=== PATIENT | male | born 1975 | race Caucasian/White ===

== ENCOUNTER 2020-03-17 10:04 | Outpatient (CLI) | payer BC, SELFPAY ==
--- NOTE | ~2020-03-17 | XR_ITS ---
XR lumbar spine 2-3V DATE: 03/17/2020 10:27 INDICATION: Left anterior thigh pain TECHNIQUE: AP, lateral, coned lateral lumbosacral views COMPARISON: None FINDINGS: The lumbar spine is normally aligned. No fracture or bone destruction or spondylolisthesis. The lumbar pedicles are intact. There is slight degenerative spurring of the lumbar spine. Lumbar an d lumbosacral interspaces are well preserved. The sacroiliac joints are normal. IMPRESSION: Slight degenerative spurring of the lumbar spine Reviewed, dictated and finalized at location B.
--- NOTE | ~2020-03-17 | XR_ITS ---
EXAMINATION: XR hip LT min 2V DATE: 03/17/2020 10:27 INDICATION: Left anterior thigh pain. TECHNIQUE: 3 views of left hip were obtained. COMPARISON: None. FINDINGS: Bone alignment is normal. No fracture. There is serpiginous sclerosis in left femoral head. There is mild left hip osteoarthritis. IMPRESSION: 1. Serpiginous sclerosis in left femoral head, likely osteonecrosis. 2. Mild left hip osteoarthritis. Reviewed, dictated and finalized at location A.
== END 2020-03-17 10:05 | disposition home or self-care (01) ==
LOC: ANHIMG 10:07
PROVIDERS: PCP Internal Medicine; Visit Provider Internal Medicine
DX: M79.605 Pain in left leg (principal); M16.12 Unilateral primary osteoarthritis, left hip
CPT/HCPCS: 72100; 73502

== ENCOUNTER → 2020-05-03 09:56 | Outpatient (CLI) | payer BC, SELFPAY ==
--- NOTE | ~2020-05-03 | XR_ITS ---
XR chest 2V DATE: 05/03/2020 10:16 INDICATION: Asthma. Preoperative evaluation. TECHNIQUE: PA and lateral views COMPARISON: 09/03/2019 PA chest FINDINGS: Normal heart size. No hilar or mediastinal enlargement. No pulmonary infiltrate or consolid ation, pleural effusion or pulmonary vascular congestion or pneumothorax. Included skeletal structure s are unremarkable. IMPRESSION: No active cardiopulmonary disease Reviewed, dictated and finalized at location A.
== END ==
PROVIDERS: PCP Internal Medicine; Visit Provider Internal Medicine
DX: J45.909 Unspecified asthma, uncomplicated (principal); Z01.818 Encounter for other preprocedural examination
CPT/HCPCS: 71046

== ENCOUNTER 2020-07-28 08:21 | Outpatient (CLI) | payer BC, SELFPAY ==
--- NOTE | 2020-08-09 21:50 | WPDHOMESLEEP ---
Sleep Study - Home Unattended Date of Study: 07/28/20 Ordering Provider: Kari Crowder MD Interpreting Physician: Virgie Badillo MD Home Sleep Study Type: Watch PAT Height: 1.88 m Weight: 102.058 kg Body Mass Index: 28.8 Neck Circumference (inches): 16 [place]: 2 Reason for Sleep Study Waking throughout the night and waking up feeling tired in the morning Sleep History Lasha Rivera is a 45-year-old male who has struggled for the last 10 years waking up frequently during the night and feeling tired in the morning. There is a family history of sleep issues with his sister having insomnia and his father having sleep apnea. He is on blood pressure medicines due to palpitations while trying to sleep. He frequently snores and is frequently loud enough that others complain about it. He occasionally awakens at night with heartburn, belching or coughing. He rarely awakens from sleep feeling short of breath. He rarely has trouble sleep with a cold. He rarely wakes up gasping for breath at night. He rarely has breathing problems at night observed by others. he does not sweat excessively at night. He frequently notices his heart pounding or beating irregularly at night. He rarely falls asleep during the day, never involuntarily, never while driving. He does not fall asleep during physical effort. He does not have loss of muscle tone with strong emotion. He rarely has daytime difficulties due to excessive sleepiness. He never feels paralyzed on waking or falling asleep. He occasionally has vivid dreamlike scenes upon awakening or falling asleep. He is not afraid to go to sleep. He occasionally has nightmares. He rarely remembers his dreams. He frequently has racing thoughts. He rarely feels sad or depressed. He occasionally has anxiety. He rarely has muscular tension. He does not notice parts of his body jerking at night. He does not kick at night. He rarely has crawling and aching feelings in his legs at night. He rarely has leg pain at night. He frequently has morning jaw pain and he frequently grinds his teeth during sleep. He rarely is bothered by pain during the day. He never is awakened by pain at night. He frequently wakes up feeling stiff in the morning with sore achy muscles. He occasionally wakes up with pain in the neck and spine. Normal bedtime is 11:00 p.m. falling asleep within 45 minutes waking 5 times at night for 15 minutes each time. When he wakes at 90 looks at his telephone. He wakes in the morning at 7:00 a.m.. He stays in the bed 1-2 hours after waking. He works as a furniture sales consultant weekend schedule reveals he goes to bed an hour later midnight and wakes at 8 in the morning. He does not usually take naps. A short nap may be refreshing. He is usually drowsy in the morning for 3 hours or longer. Habits: He smoked tobacco, quit 5 years ago. He drinks caffeine 3 servings a day. He drinks alcohol 4-5 per day. No recreational drugs. [facility] Past Medical History Medical History (Updated 08/09/20 @ 22:18 by Virgie Badillo MD) Allergic rhinitis Anxiety Eczema GERD (gastroesophageal reflux disease) Hypertension Seasonal allergies Family History Family History Other Family history of malignant neoplasm Hypertension Social History Social History Smoking status: Never smoker Alcohol intake: current Medications Home Medications Medication Instructions Recorded Confirmed Type methylprednisolone [Medrol ([facility])] See Rx Instructions .ROUTE 09/03/19 Rx .COMPLEX #21 each nebivolol [Bystolic] 5 mg PO DAILY 09/03/19 09/03/19 History omeprazole 40 mg PO DAILY 09/03/19 09/03/19 History sertraline [Zoloft] 150 mg PO DAILY 09/03/19 09/03/19 History Sleep Procedure The sleep study was completed using [employer] a technically adequate device with seven channels: peripheral arterial tone,
[2020-08-09 22:09] VITALS: BMI 28.8
== END 2020-07-28 08:22 | disposition home or self-care (01) ==
LOC: ANHCSM 08:22
PROVIDERS: PCP Internal Medicine; Visit Provider Internal Medicine
DX: G47.9 Sleep disorder, unspecified (principal); G47.33 Obstructive sleep apnea (adult) (pediatric)
CPT/HCPCS: 95800

== ENCOUNTER → 2021-01-09 03:59 | Outpatient (CLI) | payer BC, SELFPAY ==
[2021-01-09 20:06] LABS: SARS-CoV-2 RNA PCR Negative
== END ==
PROVIDERS: PCP Internal Medicine; Visit Provider Internal Medicine Gastroenterology
DX: Z01.812 Encounter for preprocedural laboratory examination (principal); Z20.822 Contact with and (suspected) exposure to COVID-19
CPT/HCPCS: C9803; U0003; U0005

== ENCOUNTER 2021-01-12 01:57 | Day surgery (SDC) | payer BC, SELFPAY ==
[2021-01-03 12:14] VITALS: BMI 28.8
[2021-01-12 10:05] VITALS: BP 128/84; PULSE 85; RESP 16; TEMP 36.1; O2SAT 98; BMI 28.4
[2021-01-12] MEDS: LACTATED RINGERS 1,000 ML 150 ML IV CONT (10:15)
--- NOTE | 2021-01-12 10:47 | WPDANESEPPF ---
Anes - Initial Pre Proc Eval Procedure: Operation Date: 01/12/21 11:30 Proposed Procedures p Screening Colonoscopy - Leland Lancaster MD Date/Time: 01/12/21 10:47 Surgeon: Leland Lancaster MD Pre Op Diagnosis: hx of colon polyps, neoplasm screening Patient Data Age: 45 Gender: M Height: 6 ft 2 in Weight: 100.4 kg Last Vital Signs Temp 97 F L 01/12/21 10:05 Pulse 85 01/12/21 10:05 Resp 16 01/12/21 10:05 BP 128/84 01/12/21 10:05 Pulse Ox 98 01/12/21 10:05 Allergies Allergy/AdvReac Type Severity Reaction Status Date / Time iodine Allergy Unknown Anaphylactic Verified 01/12/21 10:04 Shock Home Medications Medication Instructions Recorded Confirmed Type nebivolol [Bystolic] 10 mg PO DAILY 09/03/19 01/12/21 History famotidine 20 mg PO DAILY 01/03/21 01/12/21 History Patient hx anesthesia problems: none Family hx anesthesia problems: none [facility] Past Medical History Medical History (Updated 08/09/20 @ 22:18 by Virgie Badillo MD) Allergic rhinitis Anxiety Eczema GERD (gastroesophageal reflux disease) Hypertension Seasonal allergies Family History Family History Other Family history of malignant neoplasm Hypertension Social History Social History Years smoked: 4 Smoking status: Former smoker Tobacco type: cigarettes Alcohol intake: current Drinks per week: 8 Substance use: never Substance use type: does not use Living arrangements: with family Gender identity (if verbalized by the patient): Male Spiritual care concerns: No Anes - Eval Final PreProcedure Day of Procedure 01/12/21 10:47 Patient weight: obese Heart: regular rate and rhythm Lungs: clear to auscultation Airway: Mallampati scale class II Neurological: alert and oriented Last oral intake: >/= 8 hours ASA classification: III Emergent: no Anesthetic plan: proceed Anesthesia type and monitoring: general GIVS and standard monitoring Informed Consent: The patient's anesthetic plan and its attendant risks and benefits were discussed with the patient/family/POA. Questions were solicited and answers provided to the satisfaction of the patient/family/POA.
--- NOTE | 2021-01-12 10:59 | PM.HPGS ---
History of Present Illness History of Present Illness Consent: Risks, benefits, and alternatives have been discussed and questions answered. Patient agrees to proceed with procedure. Chief complaint: hx of colon polyps, neoplasm screening Narrative: Lasha Rivera is a 45 year old male with colon polyp ~ 7 years ago Review of Systems Constitutional: Constitutional: Denies headache(s) and Denies weakness Eyes: Eyes: Denies blurry vision ENT: Reports Normal hearing present, Denies headache(s) and Denies neck pain Cardiovascular: Cardiovascular: Denies chest pain and Denies dyspnea Respiratory: Respiratory: Denies dyspnea Gastrointestinal: Gastrointestinal: Reports no additional gastrointestinal complaints Genitourinary: Genitourinary: Denies dysuria Musculoskeletal: Musculoskeletal: Denies neck pain Integumentary/Breasts: Skin/Breast: Denies dry skin Neurologic: Reports Normal hearing present, Denies headache(s) and Denies weakness Psychiatric: Psychiatric: Denies anxiety Endocrine: Endocrine: Denies change in body appearance Hematologic/Lymphatic: Hematologic/Lymphatic: Denies easy bleeding Allergic/Immunologic: Allergic/Immunologic: Denies urticaria PMFSH Past Medical History Medical History (Updated 01/12/21 @ 10:59 by Leland Lancaster MD) Allergic rhinitis Anxiety Colon polyp Eczema GERD (gastroesophageal reflux disease) Hypertension Seasonal allergies Family History Family History Other Family history of malignant neoplasm Hypertension Social History Social History Years smoked: 4 Smoking status: Former smoker Tobacco type: cigarettes Alcohol intake: current Drinks per week: 8 Substance use: never Substance use type: does not use Living arrangements: with family Gender identity (if verbalized by the patient): Male Spiritual care concerns: No Meds Home Medications and Allergies Home Medications Medication Instructions Recorded Confirmed Type nebivolol [Bystolic] 10 mg PO DAILY 09/03/19 01/12/21 History famotidine 20 mg PO DAILY 01/03/21 01/12/21 History Allergies Allergy/AdvReac Type Severity Reaction Status Date / Time iodine Allergy Unknown Anaphylactic Verified 01/12/21 10:04 Shock Vital Signs Vital Signs - 24 hr 01/12/21 10:05 Temperature 97 F L Pulse Rate 85 Respiratory Rate 16 Blood Pressure 128/84 Pulse Oximetry 98 Exam Const: General: comfortable and no acute distress HENMT: General nose exam: Normal nares present Eyes: General: appearance normal, both eyes and all related structures Neck: Neck: no JVD Resp: Auscultation: clear to auscultation bilaterally Cardio: Rate: regular rate Rhythm: regular rhythm GI: Inspection: non-distended GI Palp: Yes Soft to palpation Skin: General skin exam: normal color Neuro: General: gait normal Speech: normal speech Extrem: General: normal to inspection Psych: Mental Status: mental status grossly normal Assessment and Plan Assessment and plan (1) Colon polyp: Code(s): K63.5 - Polyp of colon Status: Acute Assessment and Plan: colonoscopy
[2021-01-12 11:15] VITALS: BP 120/77; PULSE 90; RESP 24; O2SAT 98
[2021-01-12 11:25] VITALS: BP 112/64; PULSE 84; RESP 22; O2SAT 98
[2021-01-12 11:35] VITALS: BP 108/69; PULSE 82; RESP 18; O2SAT 98
== END 2021-01-12 11:51 | disposition home or self-care (01) ==
PROVIDERS: PCP Internal Medicine; Visit Provider Internal Medicine Gastroenterology
PROC: 0DJD8ZZ Inspection of Lower Intestinal Tract, Via Natural or Artificial Opening Endoscopic (ICD-10-PCS; CPT 45378; principal; 2021-01-12 11:30)
DX: Z12.11 Encounter for screening for malignant neoplasm of colon (principal); K63.5 Polyp of colon; K57.30 Diverticulosis of large intestine without perforation or abscess without bleeding; K64.8 Other hemorrhoids; I10 Essential (primary) hypertension; K21.9 Gastro-esophageal reflux disease without esophagitis; F41.9 Anxiety disorder, unspecified; Z87.891 Personal history of nicotine dependence; E66.9 Obesity, unspecified; Z68.28 Body mass index [BMI] 28.0-28.9, adult
CPT/HCPCS: 45385; 88305; C9803; J2001; J2704; J7120; U0003; U0005

== ENCOUNTER 2021-12-30 21:10 | Emergency (ER) | payer BC, SELFPAY ==
[2021-12-30 21:16] VITALS: BP 163/94; PULSE 103; RESP 24; TEMP 36.8; O2SAT 100
--- NOTE | 2021-12-30 21:24 | ECG_ITS ---
Measurements Intervals [place] Rate: 82 P: -7 [place]: 168 QRS: -28 QRSD: 103 T: 31 QT: 394 QTc: 463 Interpretive Statements SINUS RHYTHM EARLY PRECORDIAL R/S TRANSITION BORDERLINE ECG Electronically Signed On 01-01-2022 9:49:02 CDT by Ortiz Sun D.O.
--- NOTE | 2021-12-30 21:46 | ED.DIZZY ---
HPI - Dizziness General Chief Complaint: Dizziness Stated Complaint: dizzy, puking Time Seen by Provider: 12/30/21 21:17 Source: patient and family Mode of arrival: ambulatory History of Present Illness HPI Narrative: 46-year-old male presented to the emergency department for evaluation of dizziness that started at approximately 3 AM. Patient states he woke up to use the restroom and felt mildly dizzy. Patient states he woke up at 6 AM and the dizziness had worsened. Patient describes a spinning sensation that is worsened when turning his head. Patient states symptoms are improved when laying flat and closing his eyes. Patient states over the course of the day he has had multiple episodes of emesis. Related Data Home Medications Medication Instructions Recorded Confirmed nebivolol [Bystolic] 10 mg PO DAILY 09/03/19 01/12/21 famotidine 20 mg PO DAILY 01/03/21 01/12/21 Allergies Allergy/AdvReac Type Severity Reaction Status Date / Time iodine Allergy Unknown Anaphylactic Verified 12/30/21 22:01 Shock Review of Systems Review of Systems: CONSTITUTIONAL: Denies fever, chills, or sweats. EYES: Denies visual changes, redness, or discharge. ENT: Denies rhinorrhea, congestion, sore throat, or otalgia. CARDIOVASCULAR: Denies chest pain, palpitations, or edema. RESPIRATORY: Denies cough or dyspnea. GASTROINTESTINAL: Denies abdominal pain but does have nausea and vomiting. GENITOURINARY: Denies dysuria or hematuria. SKIN: Denies rash or itching. MUSCULOSKELETAL: Denies back pain, joint pain, or myalgia. NEUROLOGIC: See HPI [facility] Past Medical History Medical History (Updated 12/30/21 @ 23:53 by Gold Thornton MD) Allergic rhinitis Anxiety Colon polyp Eczema GERD (gastroesophageal reflux disease) Hypertension Seasonal allergies Family History Family History Other Family history of malignant neoplasm Hypertension Social History Social History Years smoked: 4 Smoking status: Former smoker Tobacco type: cigarettes Alcohol intake: current Drinks per week: 8 Substance use: never Substance use type: does not use Gender identity (if verbalized by the patient): Male Spiritual care concerns: No Exam Narrative: APPEARANCE: Well appearing, no pain, no distress, well-nourished. HEAD: normocephalic, atraumatic. EYES: PERRLA/EOMI, conjunctivae clear. Sustained nystagmus to the left NOSE: Normal no drainage EARS:TMS clear with good light reflex. THROAT: Pharynx clear, no exudate. NECK: Supple. No adenopathy, no masses. RESPIRATORY: Airway patent, respirations nonlabored. Clear to auscultation bilaterally, no rales, rhonchi, wheezing. CARDIOVASCULAR: Regular rate and rhythm without murmurs rubs or gallops. ABDOMINAL: Soft, nontender, nondistended, normal bowel sounds MUSCULOSKELETAL: Moves all extremities. Strength/ROM intact, No edema, No calf tenderness. NEURO: Alert. Cranial nerves II through XII intact. Grossly intact SKIN: Warm, dry. Normal Color Course Course Emergency Course: Patient did feel improved with treatment. Nausea was controlled with Zofran. Patient was able to ambulate without issue after the meclizine. Patient and were updated on the results of the work-up, plan for treatment at home and importance of follow-up with the primary care physician. Vital Signs Vital signs: Vital Signs Temperature 98.2 F 12/30/21 21:16 Pulse Rate 103 H 12/30/21 21:16 Respiratory Rate 24 H 12/30/21 21:16 Blood Pressure 163/94 H 12/30/21 21:16 Pulse Oximetry 100 12/30/21 21:16 Temperature 98.2 F 12/30/21 21:16 Pulse Rate 74 12/30/21 22:55 Respiratory Rate 15 12/30/21 22:55 Blood Pressure 137/91 H 12/30/21 22:55 Pulse Oximetry 100 12/30/21 22:55 MDM - Dizziness Differential Diagnosis Differential diagnosis: Likely benign paroxysmal positi
[2021-12-30 21:53] VITALS: BP 126/87; PULSE 85; RESP 18; O2SAT 96
[2021-12-30] MEDS: ONDANSETRON INJ 4 MG/2 ML VIAL IV PUSH (22:02)
[2021-12-30] MEDS: SODIUM CHLORIDE 0.9% IV 1,000 ML 999 ML IV CONT (22:02)
[2021-12-30 22:09] LABS: Basophils Percent Auto 0.2 % (0.2-1.2); Eosinophils Percent Auto 0.1 % (0-4.4); Hematocrit 48.4 % (42.0-52.0); Immature Granulocyte Absolute 0.05 K/mm3 (0.00-0.031); Immature Granulocyte Percent A 0.3 % (0-0.5); Lymphocytes Absolute Auto 2.55 K/mm3 (0.9-3.2); Lymphocytes Percent Auto 17.5 % (18.3-44.2); Mean Corpuscular HGB Conc 33.1 g/dl (32-36); Mean Corpuscular Hemoglobin 30.2 pg (26-34); Mean Corpuscular Volume 91.3 fl (80-100); Mean Platelet Volume 11.5 fl (7.4-10.4); Monocytes Percent Auto 6.9 % (2.6-8.5); Neutrophils Absolute Auto 10.9 K/mm3 (1.3-6.7); Platelet Count Result 270 k/mm3 (150-375); Red Cell Distribution Width 13.3 % (11.5-14.5); White Blood Count 14.6 K/mm3 (4.5-10.0)
[2021-12-30] MEDS: MECLIZINE HCL 25 MG TABLET PO (22:54)
[2021-12-30 22:55] VITALS: BP 137/91; PULSE 74; RESP 15; O2SAT 100
[2021-12-30 23:04] LABS: Alanine Aminotransferase 35 U/L (6-50); Alkaline Phosphatase 65 U/L (38-126); Anion Gap 9 mmol/L (8-16); Aspartate Amino Transferase 29 U/L (17-59); Bilirubin,Total 0.3 mg/dL (0.2-1.3); Blood Urea Nitrogen 6 mg/dL (9-20); Calcium 8.5 mg/dL (8.4-10.2); Carbon Dioxide 24 mmol/L (22-30); Chloride 99 mmol/L (98-107); Estimated CRCL calculation 154 ml/min; Estimated Glomerular Filt Rate > 60; Glucose 114 mg/dL (65-110); Potassium 3.5 mmol/L (3.4-5.0); Sodium 132 mmol/L (137-145)
[2021-12-31 01:50] VITALS: BP 132/73; PULSE 83; RESP 16; O2SAT 95
== END 2021-12-31 00:44 | disposition home or self-care (01) ==
PROVIDERS: Emergency Provider Emergency Medicine; PCP Internal Medicine
DX: H81.12 Benign paroxysmal vertigo, left ear (principal); I10 Essential (primary) hypertension; K21.9 Gastro-esophageal reflux disease without esophagitis; Z87.891 Personal history of nicotine dependence; Z86.010 Personal history of colon polyps; R94.31 Abnormal electrocardiogram [ECG] [EKG]
CPT/HCPCS: 36415; 80053; 85025; 93005; 96361; 96374; 99284; A9270; J2405; J7030

== ENCOUNTER 2022-01-01 14:58 | Outpatient (CLI) | payer BC, SELFPAY ==
--- NOTE | ~2022-01-01 | MR_ITS ---
EXAMINATION: MR brain IAC wo/w con DATE: 01/01/2022 16:01 INDICATION: Diplopia and dizziness TECHNIQUE: Magnetic resonance imaging (MRI) of the brain and brainstem was performed without and with 15 mL Multihance intravenous contrast. Sequences included sagittal and axial T1-weighted FSE, axial diffusion-weighted FS EPI, axial T2*-weighted GRE, axial T2-weighted FLAIR Propeller, axial T2-weight ed Propeller, small pjgnd-wk-ktuz coronal FIESTA, small nkezr-la-yrgo coronal T1-weighted FSE, and sm all fzhpu-rb-athf axial T1-weighted SPGR. Postcontrast sequences included axial T1-weighted FSE, smal l facgr-ht-qogm coronal T1-weighted FSE, and small kztjv-wi-hmya axial T1-weighted SPGR. Apparent dif fusion coefficient (ADC) maps were created. COMPARISON: None. FINDINGS: There are no areas of restricted diffusion to suggest acute infarction. No intracranial hemorrhage or abnormal intracranial mass lesion. There are 3 tiny foci of nonspecific increased T2-weighted signal intensity in the cerebral white matter, one in the left frontal lobe and 2 in the right frontal lobe which is within normal limits for age. There are no intraparenchymal signal abnormalities seen on th e other pulse sequences. The ventricles are symmetric and normal in size. There are no abnormal extra -axial fluid collections. Flow voids are seen in the cerebral arteries on the T2-weighted sequences c onsistent with their expected patency. Mucosal thickening the bilateral ethmoid and maxillary sinuses . Visualized orbits and soft tissues are unremarkable. There are no areas of abnormal enhancement on the post contrast images. IMPRESSION: 1. No acute intracranial process or etiology identified for reported diplopia and dizziness. Reviewed, dictated and finalized at location A. IMPRESSION: 1. No acute intracranial process or etiology identified for reported diplopia a nd dizziness.
[2022-01-01 15:21] LABS: Estimated Glomerular Filt Rate > 60
== END 2022-01-01 14:59 | disposition home or self-care (01) ==
LOC: ANHIMG 14:59
PROVIDERS: PCP Internal Medicine; Visit Provider Internal Medicine
DX: H53.2 Diplopia (principal); R42 Dizziness and giddiness
CPT/HCPCS: 70553; A9577

== ENCOUNTER 2023-06-15 13:43 | Emergency (ER) | payer BC, SELFPAY ==
--- NOTE | ~2023-06-15 | XR_ITS ---
EXAMINATION: XR chest 1V portable Exam Date/Time: 06/15/2023 14:10 CDT HISTORY: shortness of breath, DIZINESS, CHEST PAIN. HX HTN Comparison: 05/03/2020. RESULT: Lines, tubes, and devices: None. Lungs and pleura: Clear. Cardiomediastinal silhouette: Stable. Other: No acute osseous or upper abdominal finding. IMPRESSION: No acute cardiopulmonary process. Reviewed, dictated and finalized at location K.
[2023-06-15 13:45] VITALS: BP 172/111; PULSE 121; RESP 14; TEMP 36.8; O2SAT 100
[2023-06-15 13:54] VITALS: BP 169/108; PULSE 104; RESP 13; O2SAT 97
[2023-06-15 14:04] VITALS: BP 146/100; PULSE 110; RESP 13; O2SAT 100
--- NOTE | 2023-06-15 14:08 | ECG_ITS ---
Measurements Intervals [place] Rate: 91 P: 9 LA: 169 QRS: -35 QRSD: 101 T: 31 QT: 371 QTc: 458 Interpretive Statements SINUS RHYTHM MARKED LEFT AXIS DEVIATION [QRS AXIS < -30] INCOMPLETE RIGHT BUNDLE BRANCH BLOCK [90+ ms QRS DURATION, TERMINAL R IN V1/V2, 40+ ms S IN I/aVL/V4/V5/V6] BORDERLINE eCG COMPARED TO ECG 12/30/2021 21:24:43 NO SIGNIFICANT CHANGE Electronically Signed On 06-16-2023 7:03:08 CDT by Rey Nuñez M.D.
[2023-06-15 14:37] VITALS: BP 146/94; PULSE 80; RESP 15; O2SAT 100
[2023-06-15] MEDS: SODIUM CHLORIDE 0.9% IV 1,000 ML 999 ML IV CONT (14:40)
[2023-06-15] MEDS: LORazepam INJ (*CRX) 2 MG/ML VIAL 1 MG IV PUSH (14:41)
[2023-06-15 14:44] LABS: Basophils Absolute Auto 0.1 K/mm3 (0.0-0.1); Basophils Percent Auto 0.7 % (0.2-1.2); Eosinophils Absolute Auto 0.2 K/mm3 (0-0.3); Eosinophils Percent Auto 3.4 % (0-4.4); Hematocrit 46.3 % (42.0-52.0); Hemoglobin 15.3 g/dL (14.0-18.0); Immature Granulocyte Absolute 0.02 K/mm3 (0.00-0.031); Immature Granulocyte Percent A 0.3 % (0-0.5); Lymphocytes Percent Auto 35.4 % (18.3-44.2); Mean Corpuscular Hemoglobin 30.2 pg (26-34); Mean Corpuscular Volume 91.3 fl (80-100); Mean Platelet Volume 10.3 fl (7.4-10.4); Monocytes Absolute Auto 0.7 K/mm3 (0.1-0.6); Monocytes Percent Auto 10.3 % (2.6-8.5); Neutrophils Absolute Auto 3.5 K/mm3 (1.3-6.7); Neutrophils Percent Auto 49.9 % (45.5-73.1); Platelet Count Result 265 k/mm3 (150-375); Red Blood Count 5.07 M/mm3 (4.6-6.20); Red Cell Distribution Width 13.5 % (11.5-14.5); White Blood Count 7.1 K/mm3 (4.5-10.0)
[2023-06-15 14:53] LABS: Alanine Aminotransferase 38 U/L (6-50); Albumin Level 4.7 g/dL (3.5-5.1); Alkaline Phosphatase 92 U/L (38-126); Anion Gap 12 mmol/L (8-16); Aspartate Amino Transferase 40 U/L (17-59); Bilirubin,Total 0.6 mg/dL (0.2-1.3); Blood Urea Nitrogen 8 mg/dL (9-20); Calcium 9.5 mg/dL (8.4-10.2); Carbon Dioxide 23 mmol/L (22-30); Chloride 102 mmol/L (98-107); Estimated CRCL calculation 150 ml/min; Estimated Glomerular Filt Rate > 60; Glucose 104 mg/dL (65-110); Potassium 3.3 mmol/L (3.4-5.0); Sodium 137 mmol/L (137-145)
[2023-06-15 14:57] LABS: D Dimer < 0.27 ug/mL (<0.48)
[2023-06-15 15:00] LABS: Influenza A QL RT-PCR Negative (Negative); Influenza B QL RT-PCR Negative (Negative); RSV RNA, RT-PCR Negative (Negative); SARS-CoV-2 RNA PCR Negative (Negative)
[2023-06-15 15:05] LABS: Troponin I < 0.012 ng/mL (0.000-0.034)
[2023-06-15 15:26] VITALS: BP 156/96; PULSE 91; RESP 13; O2SAT 100
--- NOTE | 2023-06-15 15:33 | ED.GENADULT ---
HPI - General Adult General Chief complaint: Anxiety Stated complaint: near syncope? Time Seen by Provider: 06/15/23 13:59 History of Present Illness HPI narrative: Lasha Rivera is a 48 y/o male with PMHx of anxiety/ panic attacks. He states that he had an episode of anxiety earlier today and took a total of 0.25 of his Xanax. He states that it didn't seem to be helping and then he started to feel some mid chest pain. Chest pain lasted about minutes but it worried him. He felt like he was going to pass out and was pacing in the house. He almost called 911 but felt like he could make it and his brought him here. While here he denies chest pain, he feels like it is hard to get a deep breath in/ he is tachycardic/ no hx of illness / cough/ fever/chills Related Data Home Medications Medication Instructions Recorded Confirmed nebivolol 5 mg tablet (Bystolic) 10 mg PO DAILY 09/03/19 01/12/21 famotidine 20 mg tablet 20 mg PO DAILY 01/03/21 01/12/21 Allergies Allergy/AdvReac Type Severity Reaction Status Date / Time iodine Allergy Unknown Anaphylactic Verified 06/15/23 14:03 Shock Review of Systems Review of Systems: CONSTITUTIONAL: Denies fever, chills, or sweats. EYES: Denies visual changes, redness, or discharge. ENT: Denies rhinorrhea, congestion, sore throat, or otalgia. CARDIOVASCULAR: reports chest pain, palpitations, RESPIRATORY: Denies cough or dyspnea. GASTROINTESTINAL: Denies abdominal pain, nausea, vomiting, or diarrhea. GENITOURINARY: Denies dysuria or hematuria. SKIN: Denies rash or itching. MUSCULOSKELETAL: Denies back pain, joint pain, or myalgia. NEUROLOGIC: Denies headache, numbness, dizziness, or weakness. PSYCHIATRIC: reports anxiety / panic attack [facility] Past Medical History Medical History Allergic rhinitis Anxiety Colon polyp Eczema GERD (gastroesophageal reflux disease) Hypertension Seasonal allergies Family History Family History Other Family history of malignant neoplasm Hypertension Social History Social History Years smoked: 4 Smoking status: Former smoker Tobacco type: cigarettes Alcohol intake: current Drinks per week: 8 Substance use: never Substance use type: other Living arrangements: with family Gender identity (if verbalized by the patient): Male Spiritual care concerns: No Exam Narrative: GENERAL: Well-appearing, well-nourished, and in no acute distress. HEAD: Normocephalic, atraumatic. EYES: PERRLA and EOMI. ENT: Nares clear, no rhinorrhea or epistaxis. Mucous membranes moist. Oropharynx without tonsillar hypertrophy exudate or other lesions. NECK: Supple. No adenopathy or masses. No carotid bruits or JVD CHEST: Clear to auscultation. No respiratory distress. No wheezes rales or rhonchi HEART: Regular rate and rhythm. No murmur heard. Normal peripheral pulses. ABDOMEN: Soft, nontender, nondistended, normal active bowel sounds. EXTREMITIES: Normal range of motion. No edema. SKIN: Warm, dry, no rash. NEURO: No focal deficits. Alert and oriented x3. PSYCH: Normal mood and affect. Course Vital Signs Vital signs: Vital Signs Temperature 36.8 C 06/15/23 13:45 Pulse Rate 121 H 06/15/23 13:45 Respiratory Rate 14 06/15/23 13:45 Blood Pressure 172/111 H 06/15/23 13:45 Pulse Oximetry 100 06/15/23 13:45 Oxygen Delivery Room Air 06/15/23 13:45 Temperature 36.8 C 06/15/23 13:45 Pulse Rate 91 06/15/23 15:26 Respiratory Rate 13 06/15/23 15:26 Blood Pressure 156/96 H 06/15/23 15:26 Pulse Oximetry 100 06/15/23 15:26 Oxygen Delivery Room Air 06/15/23 13:54 Medical Decision Making MDM Narrative Medical decision making narrative: On exam pt arrives slightly hyperventilating and reports that he thinks he is having a panic attac
[2023-06-15 15:45] VITALS: BP 154/90; PULSE 88; RESP 16; O2SAT 99
== END 2023-06-15 16:15 | disposition home or self-care (01) ==
PROVIDERS: Emergency Provider Nurse Practitioner Family; PCP Internal Medicine
DX: F41.9 Anxiety disorder, unspecified (principal); K21.9 Gastro-esophageal reflux disease without esophagitis; I10 Essential (primary) hypertension; Z87.891 Personal history of nicotine dependence; Z20.822 Contact with and (suspected) exposure to COVID-19
CPT/HCPCS: 36415; 71045; 80053; 84484; 85025; 85380; 87637; 93005; 96361; 96374; 99284; J2060; J7030

== ENCOUNTER 2024-04-21 09:26 | Emergency (ER) | payer BC, SELFPAY ==
[2024-04-21] VITALS (8 sets, daily range): BP systolic 131–148; BP diastolic 83–104; PULSE 79–96; RESP 11–21; TEMP 36.8; O2SAT 96–100
--- NOTE | ~2024-04-21 | XR_ITS ---
Clinical Indication: Chest pain PA and lateral views of the chest: Comparison: 06/15/2023 Findings: The lungs are clear, without evidence of focal consolidation or pleural effusion. Cardiome diastinal silhouette is within normal limits. Bones and soft tissues are unremarkable. Impression: Normal chest. Reviewed, dictated and finalized at location . Impression: Normal chest.
--- NOTE | 2024-04-21 09:27 | ECG_ITS ---
Test Date: 2024-04-21 09:36:45 Measurements Intervals [place] Rate: 79 P: 1 MO: 179 QRS: -36 QRSD: 96 T: 22 QT: 383 QTc: 441 Interpretive Statements SINUS RHYTHM LEFT AXIS DEVIATION [QRS AXIS < -30] NONSPECIFIC T-WAVE ABNORMALITY ABNORMAL ECG No previous ECG available for comparison Electronically Signed On 04-22-2024 13:04:48 CDT by Rey Nuñez M.D.
--- NOTE | 2024-04-21 09:55 | ED.CHESTPAIN ---
HPI - Chest Pain General Chief Complaint: Chest Pain Stated Complaint: chest pain since last night Time Seen by Provider: 04/21/24 09:39 History of Present Illness HPI narrative: 49-year-old male With history of anxiety presents emergency room for evaluation of right anterior chest wall pain has been present since last night. Patient describes the pain as sharp, duration of several seconds. Patient states the pain is present at rest. Denies any shortness of breath or difficulty breathing. patient states his psychiatrist has changed his medications from Zoloft to Lexapro due to increased anxiety attacks. Patient states been taking Lexapro for approximately 2 weeks. Related Data Home Medications Medication Instructions Recorded Confirmed nebivolol 5 mg tablet (Bystolic) 10 mg PO DAILY 09/03/19 01/12/21 famotidine 20 mg tablet 20 mg PO DAILY 01/03/21 01/12/21 Allergies Allergy/AdvReac Type Severity Reaction Status Date / Time iodine Allergy Unknown Anaphylactic Verified 04/21/24 10:48 Shock Review of Systems Review of Systems: ROS unremarkable except for noted in HPI PMFSH Past Medical History Medical History Allergic rhinitis Anxiety Colon polyp Eczema GERD (gastroesophageal reflux disease) Hypertension Seasonal allergies Family History Family History Other Family history of malignant neoplasm Hypertension Social History Social History Years smoked: 4 Smoking status: Former smoker Tobacco type: cigarettes Alcohol intake: current Drinks per week: 8 Substance use: never Substance use type: other Living arrangements: with family Gender identity (if verbalized by the patient): Male Spiritual care concerns: No Exam Narrative: GENERAL: Well-appearing, well-nourished, no physical limitations, and in no acute distress. HEAD: Normocephalic, atraumatic. EYES: Conjunctivae normal, PERRLA and EOMI. CHEST: Clear to auscultation. No respiratory distress. No wheezes rales or rhonchi. HEART: Regular rate and rhythm. No murmur heard. Normal peripheral pulses. ABDOMEN: Soft, nontender, nondistended, normal active bowel sounds. EXTREMITIES: Normal range of motion. No edema. No clubbing or cyanosis SKIN: Warm, dry, no rash. No noted wounds NEURO: No focal deficits. Alert and oriented x3. MAEW. CN's II-XI intact bilaterally, normal gait PSYCH: Cooperative. anxious. Normal mood and affect. Course Vital Signs Vital signs: Vital Signs Temperature 36.8 C 04/21/24 09:30 Pulse Rate 80 04/21/24 09:30 Respiratory Rate 12 04/21/24 09:30 Blood Pressure 148/103 H 04/21/24 09:30 Pulse Oximetry 100 04/21/24 09:30 Oxygen Delivery Room Air 04/21/24 09:30 Temperature 36.8 C 04/21/24 09:30 Pulse Rate 82 04/21/24 13:05 Respiratory Rate 13 04/21/24 13:05 Blood Pressure 147/92 H 04/21/24 13:05 Pulse Oximetry 99 04/21/24 13:05 Oxygen Delivery Room Air 04/21/24 10:48 MDM - Chest Pain MDM Narrative Medical decision making narrative: 49-year-old male history of anxiety presents to the emergency room for right anterior chest wall pain. Denies any alleviating or aggravating factors. Patient did state that he had been discontinued on the left began on Lexapro 2 weeks ago. Reports feeling increased anxiety since then. Exam was benign. EKG showed no ischemic changes. Troponin adult troponin were negative. Chest x-ray showed no acute cardiopulmonary disease. Patient stated a moderate improvement in symptoms after Ativan administration. Will send patient home with hydroxyzine inguinal until his Lexapro is in therapeutic range. Will refer to Cardiology if chest pain continues. Lab Data 04/21/24 09:52 04/21/24 09:52 Labs: Lab Results
[2024-04-21 10:05] LABS: Basophils Absolute Auto 0.1 K/mm3 (0.0-0.1); Eosinophils Absolute Auto 0.2 K/mm3 (0-0.3); Eosinophils Percent Auto 2.8 % (0-4.4); Hematocrit 52.8 % (42.0-52.0); Hemoglobin 17.7 g/dL (14.0-18.0); Immature Granulocyte Absolute 0.01 K/mm3 (0.00-0.031); Immature Granulocyte Percent A 0.2 % (0-0.5); Lymphocytes Absolute Auto 2.89 K/mm3 (0.9-3.2); Lymphocytes Percent Auto 47.5 % (18.3-44.2); Mean Corpuscular HGB Conc 33.5 g/dl (32-36); Mean Corpuscular Hemoglobin 30.8 pg (26-34); Mean Platelet Volume 10.9 fl (7.4-10.4); Monocytes Absolute Auto 0.5 K/mm3 (0.1-0.6); Monocytes Percent Auto 8.7 % (2.6-8.5); Neutrophils Absolute Auto 2.4 K/mm3 (1.3-6.7); Neutrophils Percent Auto 39.8 % (45.5-73.1); Platelet Count Result 236 k/mm3 (150-375); Red Blood Count 5.74 M/mm3 (4.6-6.20); Red Cell Distribution Width 13.6 % (11.5-14.5); White Blood Count 6.1 K/mm3 (4.5-10.0)
[2024-04-21 10:14] LABS: INR 0.9; Partial Thromboplastin Time 26.1 Seconds (22.3-36.8); Prothrombin Time 12.8 Seconds (11.1-14.7)
[2024-04-21 10:30] LABS: Alanine Aminotransferase 47 U/L (6-50); Albumin Level 5.3 g/dL (3.5-5.1); Alkaline Phosphatase 82 U/L (38-126); Anion Gap 16 mmol/L (4-12); Aspartate Amino Transferase 43 U/L (17-59); Bilirubin,Total 0.8 mg/dL (0.2-1.3); Blood Urea Nitrogen 11 mg/dL (9-20); Calcium 9.5 mg/dL (8.4-10.2); Carbon Dioxide 24 mmol/L (22-30); Chloride 100 mmol/L (98-107); Estimated CRCL calculation 129 ml/min; Estimated Glomerular Filt Rate > 60; Glucose 102 mg/dL (65-110); Lipase 179 U/L (23-300); Potassium 4.1 mmol/L (3.4-5.0); Sodium 140 mmol/L (137-145); Troponin I < 0.012 ng/mL (0.000-0.034)
[2024-04-21] MEDS: ASPIRIN 81 MG CHEWABLE TABLET 324 MG PO (10:36)
[2024-04-21] MEDS: LORazepam INJ (*CRX) 2 MG/ML VIAL 1 MG IV PUSH (10:37)
[2024-04-21 13:28] LABS: Troponin I < 0.012 ng/mL (0.000-0.034)
[2024-04-21 13:30] LABS: D Dimer < 0.22 ug/mL (<0.48)
== END 2024-04-21 14:05 | disposition home or self-care (01) ==
PROVIDERS: Emergency Medicine; Emergency Provider Nurse Practitioner Family; PCP Internal Medicine
DX: R07.89 Other chest pain (principal); F41.9 Anxiety disorder, unspecified; I10 Essential (primary) hypertension; K21.9 Gastro-esophageal reflux disease without esophagitis; Z86.010 Personal history of colon polyps; Z87.891 Personal history of nicotine dependence; Z79.899 Other long term (current) drug therapy; R94.31 Abnormal electrocardiogram [ECG] [EKG]
CPT/HCPCS: 36415; 71046; 80053; 83690; 84484; 85025; 85380; 85610; 85730; 93005; 96374; 99284; A9270; J2060